=== PATIENT | male | born 1965 | race Caucasian/White ===

== ENCOUNTER 2022-12-05 15:01 | Emergency (ER) | payer MEDICAID ==
[~2022-12-05] VITALS: Ht 167.6 cm; Wt 98.9 kg
[2022-12-05 15:09] VITALS: BP 193/103
[2022-12-05] MEDS ORDERED: IBUPROFEN 600 MG TAB PO ONE (15:15)
[2022-12-05] MEDS ORDERED: ACET-8905 PO (17:10)
[2022-12-05] MEDS ORDERED: IBUP-2213 PO (17:10)
[2022-12-05 18:52] VITALS: BP 147/90
--- NOTE | 2022-12-05 18:52 | NUR ---
Patient discharged with v/s stable. Written and verbal after care instructions ABOUT ANKLE SPRAIN AND FRACTURE given and explained. Patient alert, oriented and verbalized understanding of instructions. Ambulatory with steady gait WITH CRUTCHES. All questions addressed prior to discharge. ID band removed. Patient advised to follow up with PMD. Rx of NORCO 5-325MG AND MOTRIN given. Patient educated on indication of medication including possible reaction and side effects. Opportunity to ask questions provided and answered.
== END 2022-12-05 18:52 | disposition home or self-care (01) ==
LOC: MED 15:01
DX: S93.491A Sprain of other ligament of right ankle, initial encounter (principal); E11.9 Type 2 diabetes mellitus without complications; I10 Essential (primary) hypertension; Z79.4 Long term (current) use of insulin; Z79.899 Other long term (current) drug therapy; X58.XXXA Exposure to other specified factors, initial encounter; Y93.89 Activity, other specified; Y92.89 Other specified places as the place of occurrence of the external cause; Y99.8 Other external cause status
CPT/HCPCS: 29515; 73610; 73630; 99284